=== PATIENT | female | born 1955 | race Caucasian/White ===

== ENCOUNTER → 2016-12-18 | Outpatient (CLI) | payer BC ==
[~2016-12-18] MED LIST: ALDACTAZIDE 251 TAB PO; AMBIEN 10MG10 MG PO; ASPIRIN E.C. 8181 MG PO; CALCIUM 600MG+D1 TAB PO; DITROPAN 5MG TAB5 MG PO; FLONASE NASAL S16 GM NS; INDERAL LA 60MG60 MG PO; LEXAPRO20 MG PO; MUCINEX 60600 MG/TA1 PO; NORCO 325 MG-7.1 TAB PO; PRILOSEC 20MG20 MG PO; PRINIVIL20 MG PO; TOPAMAX 25MG25 M1 PO; TYLENOL 8 HR PO; ZANTAC 150MG T150 MG PO; ZYRTEC 10MG10 MG PO
== END ==
LOC: COL.RAD 13:30
DX: K80.20 Calculus of gallbladder without cholecystitis without obstruction (principal); K76.0 Fatty (change of) liver, not elsewhere classified

== ENCOUNTER 2017-01-17 07:14 | Day surgery (SDC) | payer BC ==
[~2017-01-17] VITALS: Ht 165.1 cm; Wt 124.5 kg
[2017-01-17] MEDS ORDERED: INDERAL LA 60MG60 MG PO (08:03)
[2017-01-17] MEDS ORDERED: LEXAPRO20 MG PO (08:03)
[2017-01-17] MEDS ORDERED: PRILOSEC 20MG20 MG PO (08:03)
[2017-01-17] MEDS ORDERED: AMBIEN 10MG10 MG PO (08:03)
[2017-01-17] MEDS ORDERED: ALDACTAZIDE 251 TAB PO (08:03)
[2017-01-17] MEDS ORDERED: PRINIVIL20 MG PO (08:04)
[2017-01-17] MEDS ORDERED: TOPAMAX 25MG25 M1 PO (08:04)
[2017-01-17] MEDS ORDERED: ASPIRIN E.C. 8181 MG PO (08:10)
[2017-01-17] MEDS ORDERED: CALCIUM 600MG+D1 TAB PO (08:10)
[2017-01-17] MEDS ORDERED: DITROPAN 5MG TAB5 MG PO (08:11)
[2017-01-17] MEDS ORDERED: TYLENOL 8 HR PO (08:13)
[2017-01-17] MEDS ORDERED: MUCINEX 60600 MG/TA1 PO (08:13)
[2017-01-17] MEDS ORDERED: ZANTAC 150MG T150 MG PO (08:14)
[2017-01-17] MEDS ORDERED: FLONASE NASAL S16 GM NS (08:16)
[2017-01-17] MEDS ORDERED: ZYRTEC 10MG10 MG PO (08:17)
[2017-01-17 08:22] VITALS: BP 114/55; PULSE 70; TEMP 98.7
[2017-01-17] MEDS ORDERED: NORCO 325 MG-7.1 TAB PO (09:56)
[2017-01-17 10:30] VITALS: BP 109/87; PULSE 53; TEMP 98.8
[2017-01-17 10:45] VITALS: BP 112/52; PULSE 57
[2017-01-17 11:20] VITALS: BP 125/58; PULSE 58; TEMP 98.6
== END 2017-01-17 11:20 | disposition home or self-care (01) ==
LOC: SDCO 07:14
DX: K80.10 Calculus of gallbladder with chronic cholecystitis without obstruction (principal); E66.01 Morbid (severe) obesity due to excess calories; I10 Essential (primary) hypertension; Z96.653 Presence of artificial knee joint, bilateral; Z80.1 Family history of malignant neoplasm of trachea, bronchus and lung; Z80.0 Family history of malignant neoplasm of digestive organs; G47.00 Insomnia, unspecified; F41.8 Other specified anxiety disorders; Z68.41 Body mass index [BMI] 40.0-44.9, adult; Z87.891 Personal history of nicotine dependence
CPT/HCPCS: J2405; J2704; J3010; J7120